=== PATIENT | male | born 1995 | race Two or more races ===

== ENCOUNTER 2019-08-16 03:17 | Emergency (ER) | payer OTHER ==
[~2019-08-16] VITALS: Ht 172.7 cm; Wt 63.0 kg
[2019-08-16 03:20] VITALS: BP 143/84
== END 2019-08-16 03:51 | disposition home or self-care (01) ==
LOC: ER 03:18
DX: S39.94XA Unspecified injury of external genitals, initial encounter (principal); X58.XXXA Exposure to other specified factors, initial encounter; Y93.89 Activity, other specified; Y92.89 Other specified places as the place of occurrence of the external cause; Y99.9 Unspecified external cause status
CPT/HCPCS: 99281